=== PATIENT | female | born 1985 | race Hispanic/Latino ===

== ENCOUNTER 2017-11-22 08:12 | Inpatient (IN) | payer MEDICAID, OTHER ==
--- NOTE | 2017-11-22 08:15 | ED PDOC ---
Psych Transfer Clearance - Clearance Statement Clearance Statement: Reviewed vital signs, lab results and transfer papers. Patient clinically stable for psychiatric admission.
[2017-11-22 08:27] VITALS: O2SAT 99; BMI 25.7
[2017-11-22 09:17] VITALS: RESP 18
[2017-11-22] MEDS ORDERED: Alum-Mag Hydrox-Simethicone Susp (30 mL) PO PRN (09:45)
[2017-11-22] MEDS ORDERED: DiphenhydrAMINE 50 mg/ml Inj IM PRN (09:45)
[2017-11-22] MEDS ORDERED: Magnesium Hydroxide Susp 30 ml UD PO PRN (09:45)
--- NOTE | 2017-11-22 12:02 | PCM.BM ---
<Cristofer Mendoza - Last Filed: 11/22/17 12:00> Treatment assets and liabiliti Patient Assests: adapts well, cooperative, resourceful, self-reliant, ADL independent, physically healthy, negotiates basic needs, cognitively intact Patient Liabilities: physical pain, financial problems, poor support system, relationship conflicts, substance abuse <Jenna Greenfield - Last Filed: 11/23/17 14:57> - Diagnosis (1) Opioid dependence Status: Acute Interventions: motivational therapy 11/23/17 14:57
--- NOTE | 2017-11-22 18:02 | CP.PCM.CON ---
History of Present Illness - History of Present Illness History of Present Illness: 32 y/o female with PMH polysubstance abuse was seen at [facility] for depression and crisis eval. As per patient she has been feeling very depressed with suicidal thoughts. She is an active heroine and cocaine user with last use yesterday.She states that is feeling very depressed and at present is withdrawing. She admits to injecting heroine ( 10 bags / day ) and cocaine. She was transferred to out psych unit for management of her depression and withdrawal symptoms. She denies any chest pain , SOB, palpittaiosn, PND, orthopnea, urinary symptoms. complains of constipation . Feels like something is crawling in her legs Allergies ;NKDA PMH: polysubstance abuse Medication: none surgery ; None Family history ; None Social history: homeless,has a 12 years old daughter that lives with her mother , smokes 1 ppd for 17 years, drinking problems, uses heroine 10 bags / day , injects cocaine , uses marijuana does not work ROS ;14 point review of system negative except above Review of Systems - Review of Systems All systems: reviewed and no additional remarkable complaints except Past Patient History - Infectious Disease Hx of Infectious Diseases: None - Past Medical History & Family History Past Medical History?: No - Past Social History Smoking Status: Heavy Smoker > 10 Cigarettes Daily - CARDIAC Hx Cardiac Disorders: No Hx Hypertension: No - PULMONARY Hx Respiratory Disorders: No Hx Tuberculosis: No - NEUROLOGICAL Hx Neurological Disorder: No HX Cerebrovascular Accident: No Hx Seizures: No - HEENT Hx HEENT Problems: No - RENAL Hx Chronic Kidney Disease: No - ENDOCRINE/METABOLIC Hx Endocrine Disorders: No - HEMATOLOGICAL/ONCOLOGICAL Hx Blood Disorders: No Hx Cancer: No Hx Human Immunodeficiency Virus (HIV): No - INTEGUMENTARY Hx Dermatological Problems: No - MUSCULOSKELETAL/RHEUMATOLOGICAL Hx Musculoskeletal Disorders: No Hx Falls: No - GASTROINTESTINAL Hx Gastrointestinal Disorders: No - GENITOURINARY/GYNECOLOGICAL Hx Genitourinary Disorders: No Hx Sexually Transmitted Disorders: No - PSYCHIATRIC Hx Physical Abuse: No Hx Sexual Abuse: No Hx Substance Use: Yes (IV use since 14 yrs old) - SURGICAL HISTORY Hx Surgeries: No - ANESTHESIA Hx Anesthesia: Yes Hx Anesthesia Reactions: No Meds Allergies/Adverse Reactions: Allergies Allergy/AdvReac Type Severity Reaction Status Date / Time Latex, Natural Rubber Allergy Verified 11/15/17 23:47 sulfur dioxide Allergy Verified 11/15/17 23:47 - Medications Medications: Current Medications Acetaminophen (Tylenol 325mg Tab) 650 mg PO Q4 PRN PRN Reason: Pain, moderate (4-7) Al Hydrox/Mg Hydrox/Simethicone (Maalox Plus 30 Ml) 30 ml PO Q4 PRN PRN Reason: Dyspepsia Baclofen (Lioresal) 10 mg PO TID PRN PRN Reason: Muscle spasm Clonidine HCl (Catapres) 0.1 mg PO TID [facility] Last Admin: 11/22/17 16:48 Dose: 0.1 mg Diphenhydramine HCl (Benadryl) 50 mg IM Q6 PRN PRN Reason: Extrapyramidal S/S Unable PO Diphenhydramine HCl (Benadryl) 50 mg PO Q6 PRN PRN Reason: Extrapyramidal Symptoms Escitalopram Oxalate (Lexapro) 5 mg PO DAILY KAT Gabapentin (Neurontin) 100 mg PO TID [facility] Last Admin: 11/22/17 16:49 Dose: 100 mg Haloperidol (Haldol) 5 mg PO Q4 PRN PRN Reason: Agitation Haloperidol Lactate (Haldol) 5 mg IM Q4 PRN PRN Reason: Agitation, Unable to Take PO Loperamide HCl (Imodium) 2 mg PO QID PRN PRN Reason: Diarrhea Lorazepam (Ativan) 2 mg IM Q4 PRN PRN Reason: Anxiety/Agitation,Unable PO Magnesium Hydroxide (Milk Of Magnesia) 30 ml PO HS PRN PRN Reason: Constipation Trazodone HCl (Desyrel) 50 mg PO HS [facility] Physical Exam - Constitutional Appears: Non-toxic, No Acute Distress - Head Exam Head Exam: ATRAUMATIC, NORMAL INSPECTION, NORMOCEPHALIC - Eye Exam Eye Exam: EOMI, Normal appearance, PERRL Pupil Exam: NORMAL ACCOMODATION - ENT Exam ENT Exam: Mucous Membranes Moist, Normal Exam - Neck Exam Neck exam: Positive for: Full Rom, Normal Inspection - Respiratory Exam Respiratory Exam: Clear to Auscultation Bilateral, NORMAL BREATHING PATTERN. absent: Rales, Rhonchi, Wheezes - Cardiovascular Exam Cardiovascular Exam: Tachycardia, REGULAR RHYTHM, +S1, +S2. absent: JVD - GI/Abdominal Exam GI & Abdominal Exam: Normal Bowel Sounds, Soft. absent: Distended, Guarding, Rebound, Tenderness - Rectal Exam Rectal Exam: Deferred - Extremities Exam Extremities exam: Positive for: normal capillary refill, normal inspection, pedal pulses present. Negative for: calf tenderness, pedal edema - Back Exam Back exam: NORMAL INSPECTION - Neurological Exam Neurological exam: Alert, CN II-XII Intact, Oriented x3, Reflexes Normal - Psychiatric Exam Psychiatric exam: Flat Affect - Skin Skin Exam: Dry, Pallor, Warm Results - Vital Signs Recent Vital Signs: Last Vital Signs Temp 96.5 F L 11/22/17 10:00 Pulse 70 11/22/17 10:00 Resp 18 11/22/17 10:00 BP 143/77 11/22/17 16:48 Pulse Ox 99 11/22/17 08:13 Assessment & Plan - Assessment and Plan (Free Text) Assessment: 32 y/o female with PMH polysubstance abuse was seen at [facility] for depression and crisis eval. As per patient she has been feeling very depressed with suicidal thoughts. She is an active heroine and cocaine user with last use yesterday.She states that is feeling very depressed and at present is withdrawing. She admits to injecting heroine ( 10 bags / day ) and cocaine. She was transferred to out psych unit for management of her depression and withdrawal symptoms. She denies any chest pain , SOB, palpittaiosn, PND, orthopnea, urinary symptoms. complains of constipation . Feels like something is crawling in her legs 1. Depression management as per psych 2. Polysubstance abuse Ativan PRN , Clonidine psych management 3. Smoker nicotine patch 4. Leukocytosis no signs of infection Probably reactive repeat CBc
[2017-11-23 08:38] LABS: BASO % 0.5 % (0.0-2.0); EOS # 0.1 K/uL (0.0-0.7); EOS % 1.3 % (0.0-4.0); HEMOGLOBIN 10.9 g/dL (12.0-16.0); LYMPH # 2.4 K/uL (1.0-4.3); LYMPH % 26.9 % (20.0-40.0); MEAN CELL VOLUME 60.9 fl (81.0-99.0); MEAN CORPUSCULAR HEMOGLOBIN 19.5 pg (27.0-31.0); MEAN PLATELET VOLUME 9.9 fl (7.2-11.7); MONO # 0.8 K/uL (0.0-0.8); MONO % 8.6 % (0.0-10.0); NEUT # 5.6 K/uL (1.8-7.0); NEUT % 62.7 % (50.0-75.0); NRBC % 0.2 % (0.0-0.0); RBC 5.6 Mil/uL (3.80-5.20); RED CELL DISTRIBUTION WIDTH 15.8 % (11.5-14.5)
[2017-11-23 09:16] VITALS: PULSE 71; TEMP 97.9
[2017-11-23 09:16] LABS: ALB/GLOB RATIO 1.3 (1.0-2.1); ALBUMIN 4.3 g/dL (3.5-5.0); ALT/SGPT 26 U/L (9-52); AST/SGOT 17 U/L (14-36); BLOOD UREA NITROGEN 11 mg/dl (7-17); CALCIUM 9.7 mg/dL (8.4-10.2); GFR AFRICAN-AMERICAN > 60; GFR NON-AFRICAN AMERICAN > 60; HDL CHOLESTEROL 35 MG/DL (30-70)
[2017-11-23 09:26] LABS: LDL CHOLESTEROL 53 mg/dL (0-129)
[2017-11-23 09:30] LABS: T4 7.74 ug/dl (5.5-11.0)
--- NOTE | 2017-11-23 14:03 | PCM.PYCHPN ---
Psychiatric Progress Note - Psychiatric Progress Note Patient seen today, length of contact: pt evaluated discussed with team and chart reviewed Patient Chief Complaint: I am very tired I am withdrawing Problems Identified/Issues Discussed: pt on evaluation, presented with depressed mood dysphoric affect, currently going though opiate withdrawal, continues to feel anxious, with poor sleep early insomnia, discussed with pt increasing dose of neurontin, starting zoloft for depression and thorazine qhs for sleep encouraged pt to participate in treatment, pt denied any current suicidal or homicidal ideations, denied command hallucinations discussed with treatment team goal of refferal to inpatient rehab Medical Problems: multiple inpatient detox , [facility] was discharged due to active use while there DSM 5 Symptoms Update: 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 opiate use disorder cocaine use disorder Medication Change: Yes (start zoloft, thorazine) Medical Record Reviewed: Yes Mental Status Examination - Cognitive Function Orientation: Person, Place Attention: WNL Fund of Knowledge: WNL Decription of patient's judgement and insights: poor insight and judgment - Mood Mood: Depressed, Anxious - Affect Affect: Constricted, Depressed - Speech Speech: Appropriate - Formal Thought Process Formal Thought Process: Circumstantial Psychotic Thoughts and Behaviors: pt denied psychotic symptoms non elicited - Suicidal Ideation Suicidal Ideation: No - Homicidal Ideation Homicidal Ideation: No Goal/Treatment Plan - Goal/Treatment Plan Need for Continued Stay: Severe depression anxiety, Discharge may exacerbated symptoms Progress Toward Problem(s) and Goals/Treatment Plan: clonidine 0.1mg q8 for opiate withdrawal neurontin 200mg tid, zoloft 25mg , thorazine 50mg qhs monitor vitals and signs and symptoms for withdrawal motivaional therapy
[2017-11-23 15:06] VITALS: BP 106/67
--- NOTE | 2017-11-23 15:10 | PCM.PYCHDC ---
Mental Status Examination - Mental Status Examination Orientation: Person, Place, Situation, Time Memory: Intact Mood: Neutral Affect: Constricted Speech: Appropriate Attention: WNL Concentration: WNL Association: WNL Fund of Knowledge: WNL Formal Thought Process: No Impairment Description of patient's judgement and insight: poor insight and judgment Psychotic Thoughts and Behaviors: pt denied psychotic symptoms non elicited Suicidal Ideation: No Current Homicidal Ideation?: No Discharge Summary - Discharge Note Reason for Hospitalization: pt is 32ys old female with hx of cocaine , opiate and benzodiazepine use pt has been recently discharged from [facility], became depressed as she is homeless , relapsed on heroin about two bags daily and cocaine 4 to 5 vials a day pt started having suicidal ideations, presented to ER requesting help presenting with anxious depressed mood and anhedonia, increased anxiety passive suicidal ideations without active plan on the unit denied homicidal ideations, denied command hallucinations Laboratory Data: Abnormal Lab Results 11/23/17 11/23/17 08:34 08:34 WBC 9.0 RBC 5.60 H Hgb 10.9 L Hct 34.1 MCV 60.9 L MCH 19.5 L MCHC 32.0 L RDW 15.8 H Plt Count 233 MPV 9.9 Neut % (Auto) 62.7 Lymph % (Auto) 26.9 Hancock % (Auto) 8.6 Eos % (Auto) 1.3 Baso % (Auto) 0.5 Neut # (Auto) 5.6 Lymph # (Auto) 2.4 Hancock # (Auto) 0.8 Eos # (Auto) 0.1 Baso # (Auto) 0.0 Sodium 144 Potassium 3.8 Chloride 104 Carbon Dioxide 23 Anion Gap 21 H BUN 11 Creatinine 0.6 L Est GFR ( Amer) > 60 Est GFR (Non-Af Amer) > 60 Random Glucose 107 H Calcium 9.7 Total Bilirubin 0.7 AST 17 ALT 26 Alkaline Phosphatase 57 Total Protein 7.7 Albumin 4.3 Globulin 3.4 Albumin/Globulin Ratio 1.3 Triglycerides 79 Cholesterol 116 LDL Cholesterol Direct 53 HDL Cholesterol 35 Thyroxine (T4) 7.74 TSH 3rd Generation 0.33 L Consultations:: List each consultation separately and include: 1. Reason for request. 2. Findings. 3. Follow-up Summary of Hospital Course include:: 1. Description of specific treatment plan utilized for patients during their course of treatmen. 2. Summarize the time- course for resolution of acute symptoms and/or regressed behaviors. 3. Describe issues identified and worked on during hospitalization. 4. Describe medication utilized. 5. Describe medical problems identified and treated. 6. Reassessment of suicide risk Summary of Hospital Course: pt on admission was started on clonidine protocol, monitored for symptoms and signs of opiate withdrawal neurontin 100mg tid for anxiety and zoloft 25mg for depression pt requested discharge on second day of admisssion as she was able to get a detox bed at [facility] to [facility] tomorrow this was confirmed by social work coordinator contacting access center pt was educated about the risk of possible relapse and overdose on discharge, she understood the risks and benifits and requested to be discharged against medical advise on discharge pt mental status was stable, denied any current suicidal or homicidal ideations denied any current perceptual disturbances - Diagnosis (1) Opioid dependence Current Visit: No Status: Acute - Final Diagnosis (DSM 5) Condition upon Discharge: STABLE DSM 5: cocaine induced mood disorder with depressive features during withdrawal cocaine use disorder opiate use disorder Disposition: HOME/ ROUTINE Follow-up Treatment Plan: clonidine 0.1mg q8 for opiate withdrawal neurontin 200mg tid, zoloft 25mg , thorazine 50mg qhs monitor vitals and signs and symptoms for withdrawal motivaional therapy - Antipsychotic Medications Pt discharged on 2 or more routine antipsychotic medications: No
== END 2017-11-23 15:40 | disposition home or self-care (01) | DRG 745 ==
LOC: H.ER 08:12 → H.ERHOLD 08:14 → H.PSYCH 08:55
PROVIDERS: ADMIT Psychiatry & Neurology Psychiatry; ATTEND Psychiatry & Neurology Psychiatry
PROC: HZ52ZZZ Individual Psychotherapy for Substance Abuse Treatment, Cognitive-Behavioral (ICD-10-PCS; principal; 2017-11-22)
PROC: GZHZZZZ Group Psychotherapy (ICD-10-PCS; 2017-11-22)
PROC: GZ58ZZZ Individual Psychotherapy, Cognitive-Behavioral (ICD-10-PCS; 2017-11-22)
DX: F11.24 Opioid dependence with opioid-induced mood disorder (principal); F14.24 Cocaine dependence with cocaine-induced mood disorder; F11.23 Opioid dependence with withdrawal; F32.9 Major depressive disorder, single episode, unspecified; F41.9 Anxiety disorder, unspecified; D72.828 Other elevated white blood cell count; G47.00 Insomnia, unspecified; R45.851 Suicidal ideations; F17.210 Nicotine dependence, cigarettes, uncomplicated; Z59.0 Homelessness; Z88.2 Allergy status to sulfonamides; Z91.040 Latex allergy status